=== PATIENT | male | born 2000 | race Asian ===

== ENCOUNTER 2022-05-25 09:58 | Outpatient (REF) | payer OTHER, SELFPAY ==
[2022-05-25 12:38] LABS: Alanine Aminotransferase 30 U/L (0-40); Albumin Level 5.3 g/dL (3.5-5.0); Alkaline Phosphatase 72 U/L (39-117); Anion Gap 15 (12-20); Aspartate Amino Transferase 19 U/L (5-37); Bilirubin Total 1.1 mg/dL (0.0-1.0); Blood Urea Nitrogen 19 mg/dL (9-16); Calcium 10.1 mg/dL (8.4-10.2); Carbon Dioxide 27 mmol/L (22-29); Chloride 102 mmol/L (96-108); Cholesterol 245 mg/dL; Estimated Glomerular Filt Rate > 60; Glucose Fasting 94 mg/dL (60-99); HDL Cholesterol 47 mg/dL; LDL Cholesterol Calculated 172 mg/dl; Potassium 3.7 mmol/L (3.3-5.1); Sodium 140 mmol/L (135-145); Total Protein 7.7 g/dL (6.5-8.0); Triglycerides 132 mg/dL
[2022-05-25 12:43] LABS: TSH reflex Free T4 1.82 uIU/mL (0.32-4.0)
[2022-05-25 14:01] LABS: Appearance Urine Clear; Color Urine Yellow; Glucose Urine UA Negative (Negative); Leukocyte Esterase Urine Negative (Negative); Nitrite Urine Negative (Negative); PH 6.5 (5.0-9.0); Specific Gravity - Urine 1.025 (1.005-1.025); Urine Blood Negative (Negative); Urine Ketones Negative (Negative); Urine Protein Negative (Neg-Trace)
[2022-05-25 14:46] LABS: Creatinine Urine 136.81 mg/dL; Microalbum/Creatinine Ratio Ur 4.3 ug/mg cr
== END 2022-05-25 09:59 | disposition home or self-care (01) ==
LOC: HO.WFDLDS 09:58
PROVIDERS: Visit Provider Family Medicine
DX: Z00.00 Encounter for general adult medical examination without abnormal findings (principal); I10 Essential (primary) hypertension
CPT/HCPCS: 36415; 80053; 80061; 81003; 82043; 84443

== ENCOUNTER → 2022-05-25 14:08 | Outpatient (REF) | payer OTHER, SELFPAY ==
--- NOTE | ~2022-05-25 | XR_ITS ---
EXAMINATION: XR CHEST CLINICAL INFORMATION: Z87.09 - Personal history of other diseases of the respiratory system. Left anterior chest pain. Prior history pneumothorax. COMPARISON: None available. TECHNIQUE: 2 views of the chest were obtained. FINDINGS: The lungs are clear. There is no airspace consolidation or groundglass opacity. No pneumothorax or pneumomediastinum. No pleural reaction or effusion. The heart is normal in size. The hilar and mediastinal contours and visualized bony structures are unremarkable. XR/XR chest 2V IMPRESSION: Unremarkable examination.
--- NOTE | 2022-05-25 14:11 | CA_ITS ---
Transthoracic Echocardiogram Patient (Last, First, Middle): Jesus La, Gender: Male Date of : 2000 Age: 22 Procedure Date: 05/25/2022 Procedure Type: Transthoracic Echocardiogram Location: OP Height: 170.18 cm Weight: 68.04 kg BSA: 1.79 m2 Heart Rate: 95 bpm BP: 130 / 82 mmHg Diesel Truck Mechanic: SB Referring MD: Teo Minor MD Symptoms: R07.9 - Chest pain, unspecified Study Quality: TDS but adequate study due to narrow rib spaces ECG Rhythm: Sinus Conclusions: - The left ventricular systolic function is normal. The calculated ejection fraction is 57% by biplane method. - No obvious valvular pathology seen on this study. Findings Left Ventricle Normal left ventricular cavity size. There is normal left ventricular wall thickness. The left ventricular systolic function is normal. The calculated ejection fraction is 57% by biplane method. There is no evidence of regional wall motion abnormalities. Diastolic function is normal for age. Right Ventricle Normal right ventricular cavity size and systolic function. (TAPSE underestimate). Atria Both atria are normal in size. Aortic Valve There is a normal trileaflet aortic valve. There is no aortic valve stenosis. There is no aortic valve regurgitation. Mitral Valve The mitral valve appears normal. There is trace mitral valve regurgitation. There is no mitral valve stenosis. Pulmonic Valve The pulmonic valve is likely normal. Tricuspid Valve Normal tricuspid valve structure. There is no tricuspid valve regurgitation. Tricuspid regurgitation envelope is inadequate for calculation of right ventricular systolic pressure. Great Vessels The asc aorta is normal in size. Venous The inferior vena cava is normal in size and collapses greater than 50% with inspiration. Pericardium/Pleural There is no evidence of pericardial effusion. Prior Study Comparison No prior study available for comparison. Recommendations, Care & Conclusions No obvious valvular pathology seen on this study. Measurements 2D Linear Measurements IVSd: 0.98 0.6-0.9/0.6-1.0 cm LVIDd: 4.36 3.9-5.3/4.2-5.9 cm LVIDd Index: 2.44 2.4-3.2/2.2-3.1 cm/m2 LVIDs: 3.04 2.0-3.6 cm LVPWd: 0.77 0.7-1.1 cm LA Diam: 2.30 2.7-3.8/3.0-4.0 cm LAIDs Index: 1.28 1.5-2.3 cm/m2 LV Mass: 151.26 67-162/88-224 g LV Mass Index: 84.50 43-95/49-115 g/m2 LVOT Diam: 1.90 3.0+(-)1.3 cm 2D Systolic Function EF 4C: 50.30 >55% EF 2C: 59.30 >55% EF BiP: 56.60 >55% Mitral Valve MV Pk E: 0.65 MV PK A: 0.66 MV Decel Time: 148.00 E/A: 1.00 E'Lateral: 11.30 E'Medial: 8.81 E/E' Med: 7.30 E/E' Lat: 5.70 PHT: 43.00 MVA PHT: 5.12 Decel Graves: 4.37 Aortic Valve AoV Pk Ender: 1.24 AoV Mn Ender: 0.87 AoV VTI: 0.21 AoV Pk Grad: 6.00 Aov Mn Grad: 4.00 EBONY Cont.VTI: 2.37 LVOT LVOT Pk Ender: 1.10 LVOT Mn Ender: 0.77 LVOT VTI: 0.17 LVOT Pk Grad: 5.00 LVOT Mn Grad: 3.00 LVOT Diam: 1.90 LVOT Area: 2.84 Diastolic Function MV Pk E: 0.65 MV Pk A: 0.66 E/A: 1.00 E'Medial: 8.81 E/E' Med: 7.30 E' Laterial: 11.30 E/E' Lat: 5.70 Right Ventricle TAPSE (mm): 17.20 TVS' Ender: 12.30 Tricuspid Valve RA Press: 3.00 Great Vessels Aorta Sinus of Valsalva: 2.60 2.0-3.5 cm Ao Asc: 2.30 2.1-3.4 cm Pulmonary Valve PV Pk Ender: 1.09 Peak PV Grad: 5.00 Updated in Other Vendor System with Status of Final Carlton Herman MD electronically signed on 05/26/2022 10:17:00 AM with status of Final
== END ==
LOC: HO.CARD 14:08
PROVIDERS: Visit Provider Family Medicine
DX: R07.9 Chest pain, unspecified (principal); R94.31 Abnormal electrocardiogram [ECG] [EKG]; Z87.09 Personal history of other diseases of the respiratory system
CPT/HCPCS: 71046; 93306

== ENCOUNTER 2022-11-02 10:54 | Outpatient (REF) | payer OTHER, SELFPAY ==
[2022-11-02 14:34] LABS: Anion Gap 15 (12-20); Blood Urea Nitrogen 15 mg/dL (9-16); Calcium 10.2 mg/dL (8.4-10.2); Carbon Dioxide 25 mmol/L (22-29); Chloride 105 mmol/L (96-108); Cholesterol 235 mg/dL (<200); Estimated Glomerular Filt Rate > 60; Glucose Fasting 91 mg/dL (60-99); HDL Cholesterol 42 mg/dL (>40); LDL Cholesterol Calculated 173 mg/dL (<100); Potassium 3.6 mmol/L (3.3-5.1); Sodium 141 mmol/L (135-145); Triglycerides 101 mg/dL (<150)
== END 2022-11-02 10:55 | disposition home or self-care (01) ==
LOC: HO.WFDLDS 10:54
PROVIDERS: Visit Provider Family Medicine
DX: Z00.00 Encounter for general adult medical examination without abnormal findings (principal); E78.00 Pure hypercholesterolemia, unspecified
CPT/HCPCS: 36415; 80048; 80061

== ENCOUNTER 2022-11-07 09:32 | Outpatient (AMB) | payer OTHER, SELFPAY ==
[2022-11-07 09:35] VITALS: BP 116/70; PULSE 75; O2SAT 98; BMI 23.5
--- NOTE | 2022-11-07 09:35 | MHC.PC.OV ---
Vital Signs 11/07/22 09:35 Height 5 ft 7 in Weight 150 lb BMI 23.5 BP 116/70 Blood Pressure Location Lt brachial Position Sitting Pulse 75 Pulse Source Pulse Oximeter Pulse Oximetry (%) 98 Oxygen Delivery Method Room Air Intake Visit Reasons: f/u hypercholesterolemia Intake Note: Patient is here to follow up on cholesterol Allergies No Known Allergies Allergy (Verified 11/07/22 09:37) Tobacco use date assessed: 11/07/22 Dental Screening Did you have a dental visit in the last 12 months?: Yes Did you have a dental problem in the last 6 months where you did not have access to dental care?: No Was dental information given to patient?: Patient has dentist HPI f/u hypercholesterolemia HPI Details 22 y/o male presents to f/u hyperlipidemia. Had advised a diet lower in saturated fats and cholesterol. Had advised exercise. Labs were drawn 11/02/22. Reviewed labs with pt. Triglycerides 101. TC 235. LDL 173 - previously 172. HDL 42. HPI Comments History of Present Illness Details Documentation assistance for Teo Minor MD, was provided by Huan Cash, Poultry Helper on 11/07/2022 10:03 AM EST. Torres, Dr. Minor, have read, observed, and verified documentation. PFSH Medical History Depression Asthma Surgical History [place] teeth extracted Family History Mother Low iron Thyroid condition Maternal Grandmother Anemia Social History Housing: House Patient Tobacco Use Status: Never used Tobacco Tobacco use type: Cigarette e-Cigarette/Vaping Use: Never Used service: No Current occupational status: other Cognitive needs: No Hearing needs: No Vision needs: No Review of Systems Const Denies chills, Denies fatigue, Denies fever(s), Denies headache(s) and Denies weakness ENT Denies dizziness and Denies headache(s) Card Denies dyspnea Resp Denies cough, Denies dyspnea, Denies wheezing and Denies other (shortness of breath) Musc Denies numbness and Denies tingling Neuro Denies dizziness, Denies headache(s), Denies numbness, Denies tingling and Denies weakness Psych Denies anxiety and Denies depression Endo Denies fatigue Aller/Immun Denies wheezing Physical exam (Primary Care) Vital Signs: Last Vital Signs Pulse 75 11/07/22 09:35 BP 116/70 11/07/22 09:35 Pulse Ox 98 11/07/22 09:35 Oxygen Delivery Method Room Air 11/07/22 09:35 BMI result Body Mass Index 23.5 Tobacco/Smoking Status: Tobacco use Status Tobacco use date assessed 11/07/22 11/07/22 09:39 Patient Tobacco Use Status Never used Tobacco 11/07/22 09:39 Tobacco use type Cigarette 11/07/22 09:39 e-Cigarette/Vaping Use Never Used 11/07/22 09:39 Const General: well developed; No acute distress Nutritional Appearance: well nourished Orientation/consciousness: patient oriented x3 HENMT Head: Yes normocephalic and Yes atraumatic Eyes General: appearance normal, both eyes and all related structures Pupils: Equal, round and reactive pupils present EOM: EOMs intact bilaterally Resp Effort & Inspection: normal respiratory effort Neuro General: patient oriented x3 and gait normal Cranial nerves: Yes Equal, round and reactive pupils present Psych Affect: normal affect Assessment and Plan Assessment & Plan (1) Hypercholesterolemia: Code(s): E78.00 - Pure hypercholesterolemia, unspecified Plan: No significant changes to his TC or LDL cholesterol levels Start atorvastatin Will have him return to recheck lipids just prior to his next visit in about 3 months. Orders: Orders Lipid Panel Today E78.00 - Pure hypercholesterolemia, unspecified, Z00.00 - Encounter for general adult medical examination without abnormal findings Comprehensive [place]. Panel Fast Today E78.00 - Pure hypercholesterolemia, unspecified, Z00.00 - Encounter for general adult medical examination without abnormal findings Medications: New atorvastatin 40 mg PO BEDTIME 30 tabs 3RF 30 days Coding Level of Care Code Est Pt Level 3 (74127) Diagnoses Hypercholesterolemia E78.00
== END 2022-11-07 10:09 | disposition home or self-care (01) ==
PROVIDERS: PCP Family Medicine; Visit Provider Family Medicine
DX: E78.00 Pure hypercholesterolemia, unspecified (principal)
CPT/HCPCS: 99213

== ENCOUNTER 2023-03-02 10:57 | Outpatient (REF) | payer OTHER, SELFPAY | END 2023-03-02 10:58 | disposition home or self-care (01) | LOC: HO.WFDLDS 10:57 | PROVIDERS: Visit Provider Family Medicine | DX: Z00.00 Encounter for general adult medical examination without abnormal findings (principal); E78.00 Pure hypercholesterolemia, unspecified | CPT/HCPCS: 36415; 80053; 80061 ==

== ENCOUNTER 2023-03-06 14:34 | Outpatient (AMB) | payer OTHER, SELFPAY ==
--- NOTE | 2023-03-06 14:40 | A.OFFPC_ITS ---
Vital Signs 03/06/23 14:52 Height 5 ft 7 in Weight 160 lb BMI 25.1 BP 140/68 H Blood Pressure Location Lt brachial Position Sitting Respiration 14 Pulse 115 H Pulse Source Pulse Oximeter Pulse Oximetry (%) 98 Oxygen Delivery Method Room Air Intake Visit Reasons: f/u hypercholesterolemia Intake Note: Patient reports hes here to review labs. Patient reports he has no concerns at this time. 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 Labs were drawn 03/02/23. Reviewed labs with pt. Elevated ALT of 67. Triglycerides worsened from 101 to 205. TC improved from 235 to 204. LDL improved from 173 to 115. He is on artovastatin 40mg. Pt scores high on his PHQ-9 and KENZIE-7 questionnaires. He is on fluoxetine 30mg daily - he reports this has been increased to 50mg. PHQ-9 score 18 and KENZIE-7 score 19. He denies any plan but notes thoughts of self-harm. [facility] Medical History Depression Asthma Surgical History [place] teeth extracted Family History Mother Low iron Thyroid condition Maternal Grandmother Anemia Social History Housing: House Patient Tobacco Use Status: Never used Tobacco Tobacco use type: Cigarette e-Cigarette/Vaping Use: Never Used service: No Current occupational status: other Cognitive needs: No Hearing needs: No Vision needs: No Questionnaire PHQ-9 Over the last 2 weeks, how often have you been bothered by any of the following problems? 1. Little interest or pleasure in doing things: more than half the days 2. Feeling down, depressed, or hopeless: nearly every day 3. Trouble falling or staying asleep, or sleeping too much: nearly every day 4. Feeling tired or having little energy: nearly every day 5. Poor appetite or overeating: not at all 6. Feeling bad about yourself - or that you are a failure or have let yourself or your family down: nearly every day 7. Trouble concentrating on things, such as reading the newspaper or watching television: more than half the days 8. Moving or speaking so slowly that other people could have noticed. Or the opposite - being so fidgety or restless that you have been moving around a lot more than usual: not at all 9. Thoughts that you would be better off or of hurting yourself in some way: more than half the days Total score: 18 Depression Screening Interpretation: Positive Depression Screening Follow-up: In treatment Depression Screening Done: Yes 80329 - PHQ-9 Billing: Yes Source: Developed by Drs. Yash Taylor, Genet Ro, Richardson Koenig and colleagues, with an educational dorothy from [employer]. KENZIE-7 AMB Questionnaire KENZIE-7 Date KENZIE - 7 assessed: 03/06/23 Feeling nervous, anxious, or on edge: 3 = Nearly every day Not being able to stop or control worryin = Nearly every day Worrying too much about different things: 3 = Nearly every day Trouble relaxin = Nearly every day Being so restless that it is hard to sit still: 3 = Nearly every day Becoming easily annoyed or irritable: 2 = More than half the days Feeling afraid as if something awful might happen: 2 = More than half the days Total KENZIE-7 score (0-4 normal; 5-9 mild; 10-14 moderate; 15-21 severe): 19 Source: Developed by Drs. Yash Taylor, Genet Ro, Richardson Koenig and colleagues, with an educational dorothy from [employer]. KENZIE-7 Assessment Billing KENZIE-7 Assessment Tool: KENZIE-7 Assessment 39062 Review of Systems Const Denies chills, Denies fatigue, Denies fever(s), Denies headache(s) and Denies weakness ENT Denies dizziness and Denies headache(s) Card Denies dyspnea Resp Denies cough, Denies dyspnea, Denies wheezing and Denies other (shortness of breath) Musc Denies numbness and Denies tingling Neuro Denies dizziness, Denies headache(s), Denies numbness, Denies tingling and Denies weakness Psych Reports anxiety and Reports depression Endo Denies fatigue Aller/Immun Denies wheezing Physical exam (Primary Care) Vital Signs: Last Vital Signs Pulse 115 H 03/06/23 14:52 Resp 14 03/06/23 14:52 BP 140/68 H 03/06/23 14:52 Pulse Ox 98 03/06/23 14:52 Oxygen Delivery Method Room Air 03/06/23 14:52 BMI result Body Mass Index 25.1 Tobacco/Smoking Status: Tobacco use Status Tobacco use date assessed 11/07/22 03/06/23 14:42 Patient Tobacco Use Status Never used Tobacco 03/06/23 14:42 Tobacco use type Cigarette 03/06/23 14:42 e-Cigarette/Vaping Use Never Used 03/06/23 14:42 PHQ-9: PHQ-9 Score PHQ-9: Total score 18 03/06/23 15:01 Depression Screening Interpretation: Positive Depression Screening Follow-up: In treatment Const General: well developed; No acute distress Nutritional Appearance: well nourished Orientation/consciousness: patient oriented x3 HENMT Head: Yes normocephalic and Yes atraumatic Eyes General: appearance normal, both eyes and all related structures Pupils: Equal, round and reactive pupils present EOM: EOMs intact bilaterally Resp Effort & Inspection: normal respiratory effort Auscultation: clear to auscultation bilaterally Cardio Rate: regular rate Rhythm: regular rhythm Heart sounds: S1 normal heart sound present, S2 normal heart sound present, no gallops, no murmurs and no rubs Neuro General: patient oriented x3 and gait normal Cranial nerves: Yes Equal, round and reactive pupils present Psych Affect: normal affect Assessment and Plan Assessment & Plan (1) Hypercholesterolemia: Code(s): E78.00 - Pure hypercholesterolemia, unspecified Plan: LDL?cholesterol?now?below?goal?of?less?than?130 Can?likely?maintain?him?at?goal?at?decreased?atorvastatin?level. Will?decrease?atorvastatin?to?20?mg?daily (2) Elevated ALT measurement: Code(s): R74.01 - Elevation of levels of liver transaminase levels Plan: Elevated?ALT.??AST?within?normal?limits. Patient?notes?that?he?has?been?drinking?a?little?more?lately. Advised?him?to?decrease?drinking?alcohol?and?hydrate?well. Will?repeat?liver?enzymes?in?6?weeks (3) Anxiety with depression: Code(s): F41.8 - Other specified anxiety disorders Plan: Significant?anxiety?and?depression. He?is?on?fluoxetine?50?mg?daily?by?his?psych?med?provider.??He?has?a?therapist?a s?well. Patient?does?get?thoughts?of?self-harm?and?SI.??No?current?plan. Advised?patient?that?he?can?call?here?or?his?therapist?if?he?is?having?thoughts? of?self-harm?or?SI.??Patient?understands. Advised?he?c ontact?his?psych?med?provider?as?he?was?discussing?adjunct?medications?with?them ?but?has?not?received?it. Also,?patient?notes?that?his?worsening?of?anxiety?depression?is?related?to?issue s?such?as?his?housing?situation. Will?ask?the?nurse?navigator?to?evaluate?for?services. Orders: Orders Comprehensive [place]. Panel Fast Today Z00.00 - Encounter for general adult medical examination without abnormal findings Lipid Panel Today Z00.00 - Encounter for general adult medical examination without abnormal findings Referrals Nurse Navigator Referral F41.8 - Other specified anxiety disorders Coding Level of Care Code Est Pt Level 3 (30356) Diagnoses Hypercholesterolemia E78.00 Elevated ALT measurement R74.01 Anxiety with depression F41.8 Additional Codes KENZIE-7 Assessment Billing - KENZIE-7 Assessment Tool: KENZIE-7 Assessment [id number] ([id number])
[2023-03-06 14:52] VITALS: BP 140/68; PULSE 115; RESP 14; O2SAT 98; BMI 25.1
== END 2023-03-06 15:26 | disposition home or self-care (01) ==
PROVIDERS: PCP Family Medicine; Visit Provider Family Medicine
DX: E78.00 Pure hypercholesterolemia, unspecified (principal); R74.01 Elevation of levels of liver transaminase levels; F41.8 Other specified anxiety disorders
CPT/HCPCS: 96127; 99213

== ENCOUNTER 2023-07-26 10:32 | Outpatient (REF) | payer OTHER, SELFPAY ==
[2023-07-26 12:41] LABS: Alanine Aminotransferase 28 U/L (0-40); Albumin Level 5.1 g/dL (3.5-5.0); Alkaline Phosphatase 59 U/L (39-117); Anion Gap 15 (12-20); Aspartate Amino Transferase 24 U/L (5-37); Bilirubin Total 1.2 mg/dL (0.0-1.0); Blood Urea Nitrogen 14 mg/dL (9-16); Calcium 10.3 mg/dL (8.4-10.2); Carbon Dioxide 25 mmol/L (22-29); Chloride 105 mmol/L (96-108); Cholesterol 190 mg/dL (<200); Estimated Glomerular Filt Rate > 60; Glucose Fasting 79 mg/dL (60-99); HDL Cholesterol 43 mg/dL (>40); LDL Cholesterol Calculated 115 mg/dL (<100); Potassium 3.7 mmol/L (3.3-5.1); Sodium 141 mmol/L (135-145); Total Protein 7.9 g/dL (6.5-8.0); Triglycerides 162 mg/dL (<150)
== END 2023-07-26 10:33 | disposition home or self-care (01) ==
LOC: HO.WFDLDS 10:32
PROVIDERS: Visit Provider Family Medicine
DX: Z00.00 Encounter for general adult medical examination without abnormal findings (principal)
CPT/HCPCS: 36415; 80053; 80061

== ENCOUNTER → 2023-08-02 15:15 | Outpatient (AMB) | payer OTHER, SELFPAY ==
--- NOTE | 2023-08-02 15:08 | A.OFFPC_ITS ---
Intake Visit Reasons: fu labs Intake Note: Patient is scheduled for lab review today, and would like to talk about Atorvstatin. Allergies No Known Allergies Allergy (Verified 08/02/23 15:09) Tobacco use date assessed: 11/07/22 HPI fu labs HPI Details 23 y/o male presents to f/u CPE-labs via telemedicine. Also f/u anxiety with depression. Labs were drawn 07/26/23. Reviewed labs with pt. Triglycerides 162. TC 190. LDL 115. HDL 43. He is on artovastatin 40mg. Liver enzymes are now fine. He reports ongoing thoughts of self-harm and states these thoughts are difficult to get rid of. He is currently not on his fluoxetine. PFSH Medical History Depression Asthma Surgical History [place] teeth extracted Family History (Updated 08/02/23 @ 15:13 by Trisha Almonte CMA) Mother Low iron Thyroid condition Mental health disorder Maternal Grandmother Anemia Social History Housing: House Patient Tobacco Use Status: Never used Tobacco Tobacco use type: Cigarette e-Cigarette/Vaping Use: Never Used service: No Current occupational status: other Cognitive needs: No Hearing needs: No Vision needs: No Questionnaire KENZIE-7 AMB Questionnaire KENZIE-7 Date KENZIE - 7 assessed: 03/06/23 Source: Developed by Drs. Yash Taylor, Genet Ro, Richardson Koenig and colleagues, with an educational dorothy from [employer]. Review of Systems Const Denies chills, Denies fatigue, Denies fever(s), Denies headache(s) and Denies weakness ENT Denies dizziness and Denies headache(s) Card Denies dyspnea Resp Denies cough, Denies dyspnea, Denies wheezing and Denies other (shortness of breath) Musc Denies numbness and Denies tingling Neuro Denies dizziness, Denies headache(s), Denies numbness, Denies tingling and Denies weakness Psych Reports anxiety and Reports depression Endo Denies fatigue Aller/Immun Denies wheezing Physical exam (Primary Care) Tobacco/Smoking Status: Tobacco use Status Tobacco use date assessed 11/07/22 08/02/23 15:10 Patient Tobacco Use Status Never used Tobacco 08/02/23 15:10 Tobacco use type Cigarette 08/02/23 15:10 e-Cigarette/Vaping Use Never Used 08/02/23 15:10 Psych Other: Depressed affect in his voice Telehealth Telehealth Minutes spent on Phone/Video with Pt.: 12 Assessment and Plan Assessment & Plan (1) Hypercholesterolemia: Code(s): E78.00 - Pure hypercholesterolemia, unspecified Plan: Lipids?are?improved?with?atorvastatin?but?LDL?still?a?little?above?goal?of?less? than?100 Continue?current?medication Encouraged?dietary?changes (2) Elevated ALT measurement: Code(s): R74.01 - Elevation of levels of liver transaminase levels Plan: This?has?resolved Will?monitor (3) Anxiety with depression: Code(s): F41.8 - Other specified anxiety disorders Plan: Still?seems?to?have?rather?severe?depression?and?anxiety. He?has?stopped?fluoxetine?and?is?no?longer?seeing?a?therapist. Offered?medication?but?he?was?rather?equivocal?and?declines?this?for?now.??Made? him?aware?that?these?are?available Patient?denies?any?imminent?thoughts?of?self- harm?but?says?that?he?does?have?these?thoughts.??No?current?plan. Advised?patient?that?he?can?call?here?if?having?increased?th oughts?and?or?plan?of?self- harm.??Also?advised?he?can?and?should?go?to?ED?crisis. ?Advised?he?also?consider?other?people?or?professionals?that?he?can?talk?to?if?h e?is?having?thoughts?of?self-harm. No ?clear?contract?for?safety?but?no?imminent?plan?or?thoughts?of?self-harm. Will?have?patient?follow-up?in?1?month?for?close?follow-up. 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
== END ==
PROVIDERS: PCP Family Medicine; Visit Provider Family Medicine
DX: E78.00 Pure hypercholesterolemia, unspecified (principal); R74.01 Elevation of levels of liver transaminase levels; F41.8 Other specified anxiety disorders; F34.1 Dysthymic disorder
CPT/HCPCS: 99212

== ENCOUNTER 2024-04-11 15:36 | Outpatient (AMB) | payer OTHER, SELFPAY ==
[2024-04-11 15:40] VITALS: BP 110/70; PULSE 73; TEMP 36.7; O2SAT 97
--- NOTE | 2024-04-11 15:40 | AM.OFFWIN_ITS ---
Intake Vital Signs 04/11/24 15:40 Height 5 ft 7 in BMI Reason not done Patient refused/unable BP 110/70 Blood Pressure Location Rt brachial Position Sitting Pulse 73 Pulse Source Pulse Oximeter Temp 98.1 F Temp Source Oral Pulse Oximetry (%) 97 Intake Visit Reasons: EP-bleeding when urinating Patient Tobacco Use Status: Never used Tobacco Allergies No Known Allergies Allergy (Verified 04/11/24 15:40) Do you need a note to return to daycare/school/sports/work: No HPI HPI Comments History of Present Illness Details History of Present Illness - The patient is a 24-year-old male pres enting with rectal bleeding and suspected hemorrhoids. - Issues reported include frequent episo shantanu of rectal bleeding, with dark red blood observed in the toilet and on toilet paper. - The condition originated approximately two months prior and generally occurs once or twice weekly. - Bowel movement experiences vary; somet imes easy, sometimes painful, described as tearing. - Patient connects symptoms to sleep dep rivation and an irregular eating schedule. - Denies any previous trauma, foreign farheen dy introduction, or known gastrointestinal bleeding. Physical Exam General: Cooperative, healthy appearing, comfortable, no acute distress and well developed Orientation: Patient oriented x3 Limitations: No limitations Head: Normal to inspection Ears: Hearing grossly normal bilaterally Nose: Normal external nose present Face and sinus: Normal facial exam Eyes: Appearance normal, both eyes and all related structures Neck: Normal visual inspection and Yes full ROM Respiratory: Normal respiratory effort and able to speak in complete sentences. Skin: No rashes or lesions noted Neuro: Patient oriented x3 Extremities: Normal to inspection [facility] Medical History Depression Asthma Surgical History [place] teeth extracted Family History (Updated 08/02/23 @ 15:13 by Trisha Almonte CMA) Mother Low iron Thyroid condition Mental health disorder Maternal Grandmother Anemia Social History Housing: House Patient Tobacco Use Status: Never used Tobacco Tobacco use type: Cigarette e-Cigarette/Vaping Use: Never Used service: No Current occupational status: other Cognitive needs: No Hearing needs: No Vision needs: No Review of Systems Const All systems reviewed & are unremarkable except as noted in HPI and below Physical Exam Vital Signs: Last Vital Signs Temp 98.1 F 04/11/24 15:40 Pulse 73 04/11/24 15:40 BP 110/70 04/11/24 15:40 Pulse Ox 97 04/11/24 15:40 Assessment & Plan Assessment & Plan (1) Hemorrhoids: Code(s): K64.9 - Unspecified hemorrhoids Qualifiers: Hemorrhoid type: unspecified Qualified Code(s): K64.9 - Unspecified hemorrhoids Plan: Gave patient UTD hand out with treatment and prevention options. Interventions discussed were dietary modifications to increase fiber and fluid intake. Mentioned use of topical creams and witch monisha pads if pain occurs after defecation. Getting more rest, eating regularly and adjusting his work schedule to reduce stress and fatigue. Persistent or increased blood loss should be evaluated by the primary care physician to rule out other causes. The patient?s work schedule was noted to potentially influence condition management due to irregular sleep and meal times, and recommendations were made to address these lifestyle factors to reduce symptom recurrence. Sent message to PCP to request note for work hour adjustments and/or visit sooner as pt states he cannot get appt until October. Patient was informed and verbally consented to the use of an ambient scribe for clinic note documentation during this visit. Coding Level of Care Code Est Pt Level 3 (67005) Diagnoses Hemorrhoids, unspecified hemorrhoid type K64.9 Hemorrhoid type: unspecified
== END 2024-04-11 16:13 | disposition home or self-care (01) ==
PROVIDERS: PCP Family Medicine; Visit Provider Physician Assistant
DX: K64.9 Unspecified hemorrhoids (principal)

== ENCOUNTER → 2024-04-11 15:36 | Outpatient (BNVA) | payer OTHER, SELFPAY | PROVIDERS: PCP Family Medicine | DX: K64.9 Unspecified hemorrhoids (principal) | CPT/HCPCS: 99212 ==

== ENCOUNTER 2024-04-12 09:53 | Outpatient (AMB) | payer OTHER, SELFPAY ==
--- NOTE | 2024-04-12 10:02 | A.OFFPC_ITS ---
Vital Signs 04/12/24 10:08 Height 5 ft 7 in Weight 160 lb 6 oz BMI 25.1 BP 120/70 Blood Pressure Location Rt brachial Position Sitting Respiration 12 Pulse 72 Pulse Source Pulse Oximeter Temp 97.1 F Temp Source Oral Pulse Oximetry (%) 98 Oxygen Delivery Method Room Air Intake Visit Reasons: NOTE FOR WORKING HOURS Intake Note: Patient was seen in walk in clinic in [place] yesterday, patient is looking for a extended work note and a letter stating the hours he can work due to his health. 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 Allergies No Known Allergies Allergy (Verified 04/12/24 10:30) Medication List - Last Reconciled 04/12/24 by CARLOS Berg No Known Home Meds Tobacco use date assessed: 04/12/24 Dental Screening Dental Screen Date: 04/12/24 Did you have a dental visit in the last 12 months?: No Did you have a dental problem in the last 6 months where you did not have access to dental care?: No Was dental information given to patient?: Patient has dentist HPI HPI Comments History of Present Illness Details - The patient is a 24-year-old male pres enting with a request for work accommodations due to bleeding hemorrhoids exacerbated by an irregular work schedule. 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 - He experiences worsened hemorrhoid sym ptoms in conjunction with the lack of adequate rest between work shifts. - Discussion with employment management indicated that a physician's note could facilitate reasonable scheduling accommodations, primarily morning shifts and adequate time between shifts. Works 8 hours day with some 12 hours shifts Drives 40-[address] to and from work sleeping 6 hours/night Physical Exam General: Well developed, well nourished, in no acute distress. Appears stated age. Head: Normocephalic, atraumatic. Psych: Flat affect, soft spoken Discussion Notes During the visit, I discussed the patient's ongoing challenges with hemorrhoids exacerbated by fatigue due to an erratic work schedule. The patient was advised on the benefits of having a consistent morning schedule and ensuring adequate rest between shifts to manage his symptoms effectively. Given the patient's concern and prior discussion with his employer, I agreed to provide a letter requesting reasonable accommodations for a more consistent schedule with at least 12 hours between shifts. The letter's intent is to help manage the patient's fatigue and improve symptoms related to hemorrhoids. Follow-up and further interventions may be discussed pending the response of the employer to the accommodations request. Assessment and Plan 24-year-old male with a history of bleed ing hemorrhoids presenting with a request for work schedule accommodations. It is noted that the irregular work hours contribute to fatigue and exacerbate hemorrhoid symptoms. Accommodations are necessary to implement a consistent morning schedule and sufficient rest periods to alleviate symptoms and manage the condition effectively. 1. Work Schedule-Related Fatigue And Sle ep Deprivation A letter requesting work schedule accommodations, primarily regarding consistent morning shifts and sufficient rest intervals, will be provided to address the fatigue and sleep deprivation affecting the patient's condition. 2. Bleeding Hemorrhoids A letter requesting consistent morning/daytime shifts and adequate rest periods (12 hours between shifts) will be provided to alleviate symptoms exacerbated by fatigue and insufficient recovery time related to the current work schedule. Patient Instructions - Submit the provided letter to your emp loyer to request work accommodations. - Monitor symptoms of hemorrhoids and re port any changes or worsening. - Ensure adequate rest and recovery angy ods, as advised, to manage fatigue. - Follow up if there is no improvement i n symptoms or if further medical intervention is needed. Consent The patient has been appropriately informed regarding the preparation of a work accommodations letter aimed at providing consistency in work schedule and ensuring adequate rest periods. The patient consents to this plan, understanding its intent to mitigate undue symptom exacerbation related to hemorrhoids and fatigue. The patient understands the potential impact on employment and agrees with the outlined approach. Patient was informed and verbally consented to the use of an ambient scribe for clinic note documentation during this visit. Total time spent caring for the patient today was 30 minutes. This includes time spent before the visit reviewing the chart, time spent during the visit, and time spent after the visit on documentation, reviewing laboratory results, diagnostic imaging, medications, performing a medically necessary evaluation, counseling on diagnoses, care coordination, ordering appropriate tests, ordering appropriate medications, review of tests performed by other providers, reporting test results with the patient, communication with other healthcare providers. [facility] Medical History Depression Asthma Surgical History [place] teeth extracted Family History (Updated 08/02/23 @ 15:13 by Trisha Almonte CMA) Mother Low iron Thyroid condition Mental health disorder Maternal Grandmother Anemia Social History Housing: House Patient Tobacco Use Status: Never used Tobacco Tobacco use type: Cigarette e-Cigarette/Vaping Use: Never Used service: No Current occupational status: other Cognitive needs: No Hearing needs: No Vision needs: No Questionnaire PHQ-9 Over the last 2 weeks, how often have you been bothered by any of the following problems? 1. Little interest or pleasure in doing things: not at all 2. Feeling down, depressed, or hopeless: more than half the days 3. Trouble falling or staying asleep, or sleeping too much: more than half the days 4. Feeling tired or having little energy: more than half the days 5. Poor appetite or overeating: not at all 6. Feeling bad about yourself - or that you are a failure or have let yourself or your family down: several days 7. Trouble concentrating on things, such as reading the newspaper or watching television: not at all 8. Moving or speaking so slowly that other people could have noticed. Or the opposite - being so fidgety or restless that you have been moving around a lot more than usual: not at all 9. Thoughts that you would be better off or of hurting yourself in some way: several days Total score: 8 33450 - PHQ-9 Billing: Yes Source: Developed by Drs. Yash Taylor, Genet Ro, Richardson Koenig and colleagues, with an educational dorothy from [employer]). Thrive Questionnaire Date Thrive assessed: 04/12/24 I am a: Patient What is your living situation today?: I have a steady place to live Within the past 12 months, did the food you bought not last and you didn't have the money to get more?: Never true Within the past 12 months, did you worry whether your food would run out before you got money to buy more?: Never true Do you have trouble paying for medicines?: No Do you have trouble getting transportation to medical appointments?: No Do you have trouble paying your heating and electricity bill?: No Do you have trouble taking care of your child, family member or friend?: No Do you have trouble with day-to-day activities such as bathing, preparing meals, shopping, managing finances, etc.?: No Are you currently unemployed and looking for a job?: No Are you interested in more education?: No Please select the resources that you would like help with: None Currently or been in a relationship where the following occur: No concerns reported THRIVE Score: 0 AUDIT C Alcohol Use Questionnaire (AUDIT-C) 1. How often do you have a drink containing alcohol?: Never Total Score: 0 KENZIE-7 AMB Questionnaire KENZIE-7 Date KENZIE - 7 assessed: 04/12/24 Feeling nervous, anxious, or on edge: 1 = Several days Not being able to stop or control worryin = Several days Worrying too much about different things: 1 = Several days Trouble relaxin = Several days Being so restless that it is hard to sit still: 0 = Not at all Becoming easily annoyed or irritable: 2 = More than half the days Feeling afraid as if something awful might happen: 1 = Several days Total KENZIE-7 score (0-4 normal; 5-9 mild; 10-14 moderate; 15-21 severe): 7 Source: Developed by Drs. Yash Taylor, Genet Ro, Richardson Koenig and colleagues, with an educational dorothy from [employer]). KENZIE-7 Assessment Billing KENZIE-7 Assessment Tool: KENZIE-7 Assessment 85426 Physical exam (Primary Care) Vital Signs: Last Vital Signs Temp 97.1 F 04/12/24 10:08 Pulse 72 04/12/24 10:08 Resp 12 04/12/24 10:08 BP 120/70 04/12/24 10:08 Pulse Ox 98 04/12/24 10:08 Oxygen Delivery Method Room Air 04/12/24 10:08 BMI result Body Mass Index 25.1 Tobacco/Smoking Status: Tobacco use Status Tobacco use date assessed 04/12/24 04/12/24 10:03 Patient Tobacco Use Status Never used Tobacco 04/12/24 10:02 Tobacco use type Cigarette 04/12/24 10:02 e-Cigarette/Vaping Use Never Used 02/14/25 10:02 PHQ-9: PHQ-9 Score PHQ-9: Total score 8 04/12/24 10:03 Thrive Assessment: Date of Thrive Assessment Date Thrive assessed 04/12/24 04/12/24 10:02 Currently or been in a relationship where the following occur: No concerns reported Coding Level of Care Code Est Pt Level 4 (76294) Complex EM visit Add On G2211 Diagnoses Work-related stress Z56.6 Stressful work schedule Z56.3 Hemorrhoids, unspecified hemorrhoid type K64.9 Hemorrhoid type: unspecified Additional Codes KENZIE-7 Assessment Billing - KENZIE-7 Assessment Tool: KENZIE-7 Assessment 81259 ([id number]) PHQ-9 - 18690 - PHQ-9 Billing: Yes ([id number]) Assessment & Plan Assessment & Plan (1) Work-related stress: Code(s): Z56.6 - Other physical and mental strain related to work Category: Social Hx (2) Stressful work schedule: Code(s): Z56.3 - Stressful work schedule Category: Social Hx (3) Hemorrhoids: Code(s): K64.9 - Unspecified hemorrhoids Category: Medical Qualifiers: Hemorrhoid type: unspecified Qualified Code(s): K64.9 - Unspecified hemorrhoids Plan .
[2024-04-12 10:08] VITALS: BP 120/70; PULSE 72; RESP 12; TEMP 36.2; O2SAT 98; BMI 25.1
== END 2024-04-12 11:06 | disposition home or self-care (01) ==
PROVIDERS: PCP Family Medicine; Visit Provider Nurse Practitioner Family
DX: Z56.6 Other physical and mental strain related to work (principal); Z56.3 Stressful work schedule; K64.9 Unspecified hemorrhoids

== ENCOUNTER → 2024-04-12 09:53 | Outpatient (BNVA) | payer OTHER, SELFPAY | PROVIDERS: PCP Family Medicine; Visit Provider Nurse Practitioner Family | DX: K64.9 Unspecified hemorrhoids (principal); Z56.3 Stressful work schedule; Z56.6 Other physical and mental strain related to work | CPT/HCPCS: 96127; 99212 ==